=== PATIENT | female | born 1995 ===

== ENCOUNTER 2022-05-24 08:17 | Emergency (ER) | payer OTHER ==
[~2022-05-24] VITALS: Ht 152.4 cm; Wt 109.3 kg
== END 2022-05-24 20:18 | disposition home or self-care (01) ==
LOC: ER 08:17
DX: J02.9 Acute pharyngitis, unspecified (principal)
CPT/HCPCS: 87430

== ENCOUNTER 2022-07-27 10:25 | Emergency (ER) | payer OTHER ==
[~2022-07-27] VITALS: Ht 152.4 cm; Wt 108.9 kg
== END 2022-07-27 12:57 | disposition home or self-care (01) ==
LOC: ER 10:25
DX: R20.0 Anesthesia of skin (principal); R20.2 Paresthesia of skin; F41.1 Generalized anxiety disorder; Z87.891 Personal history of nicotine dependence
CPT/HCPCS: 99283